=== PATIENT | male | born 1965 | race Caucasian/White ===

== ENCOUNTER 2020-05-24 12:47 | Outpatient (REF) | payer MEDICARE, MEDICAID, SELFPAY | END 2020-05-24 12:48 | disposition home or self-care (01) | LOC: HO.LAB 12:47 | PROVIDERS: Visit Provider Internal Medicine | DX: Z20.828 Contact with and (suspected) exposure to other viral communicable diseases (principal) | CPT/HCPCS: C9803; U0003 ==

== ENCOUNTER 2020-07-17 12:22 | Outpatient (REF) | payer MEDICARE, MEDICAID, SELFPAY ==
[2020-07-17 14:06] LABS: Estimated Average Glucose 134 mg/dL; Hemoglobin A1c % 6.3 %
[2020-07-17 14:37] LABS: Creatinine Urine 146.62 mg/dL; Microalbum/Creatinine Ratio Ur 4.7 ug/mg cr
[2020-07-17 14:37] LABS: Alanine Aminotransferase 10 U/L (0-40); Albumin Level 4.2 g/dL (3.5-5.0); Alkaline Phosphatase 81 U/L (39-117); Anion Gap 15 (12-20); Aspartate Amino Transferase 10 U/L (5-37); Bilirubin Total 0.3 mg/dL (0.0-1.0); Blood Urea Nitrogen 16 mg/dL (9-16); Calcium 9.1 mg/dL (8.4-10.2); Carbon Dioxide 27 mmol/L (22-29); Chloride 101 mmol/L (96-108); Estimated Glomerular Filt Rate > 60; Glucose Random 140 mg/dL (60-115); Potassium 4.3 mmol/l (3.3-5.1); Sodium 139 mmol/L (135-145); Total Protein 6.7 g/dL (6.5-8.0)
== END 2020-07-17 12:23 | disposition home or self-care (01) ==
LOC: HO.LAB 12:22
PROVIDERS: PCP Internal Medicine; Visit Provider Internal Medicine
DX: E11.9 Type 2 diabetes mellitus without complications (principal); E78.00 Pure hypercholesterolemia, unspecified; F70 Mild intellectual disabilities; I10 Essential (primary) hypertension
CPT/HCPCS: 36415; 80053; 82043; 83036

== ENCOUNTER 2020-09-14 12:05 | Outpatient (REF) | payer MEDICARE, MEDICAID, SELFPAY | END 2020-09-14 12:06 | disposition home or self-care (01) | LOC: HO.LAB 12:05 | PROVIDERS: Visit Provider Internal Medicine | DX: Z20.822 Contact with and (suspected) exposure to COVID-19 (principal) | CPT/HCPCS: 36415; C9803; U0003; U0005 ==

== ENCOUNTER 2021-02-12 09:44 | Outpatient (REF) | payer MEDICARE, MEDICAID, SELFPAY ==
[2021-02-12 10:47] LABS: MANUAL DIFF FLAG NO
[2021-02-12 10:54] LABS: Basophils Absolute Auto 0.1 X10*3/uL (0.0-0.2); Basophils Percent Auto 1.1 % (0-2); Eosinophils Absolute Auto 0.2 X10*3/uL (0.0-0.4); Eosinophils Percent Auto 4.1 % (0-4); Hematocrit 42.2 % (42-52); Hemoglobin 13.6 g/dl (14.0-18.0); Imm Gran Abs Auto 0.03 X10*3/uL (0.00-0.03); Imm Gran Pct Auto 0.5 % (0.0-0.4); Lymphocytes Percent Auto 17.1 % (20-40); Mean Corpuscular HGB Conc 32.2 g/dl (31.0-36.0); Mean Corpuscular Hemoglobin 26.8 pg (27.0-33.0); Mean Corpuscular Volume 83.2 fL (80-98); Mean Platelet Volume 9.4 fL (9.4-12.4); Monocytes Absolute Auto 0.5 X10*3/uL (0.1-1.2); Neutrophils Absolute Auto 3.9 X10*3/uL (2.0-8.3); Neutrophils Percent Auto 68.2 % (45-73); Platelet Count 330 X10*3/uL (160-400); Red Blood Count 5.07 X10*6/uL (4.60-5.80); Red Cell Distribution Width 13.7 % (11.0-16.0); White Blood Count 5.7 X10*3/uL (4.8-10.8)
[2021-02-12 10:58] LABS: Estimated Average Glucose 137 mg/dL; Hemoglobin A1c % 6.4 %
[2021-02-12 11:15] LABS: Alanine Aminotransferase 12 U/L (0-40); Albumin Level 4.1 g/dL (3.5-5.0); Alkaline Phosphatase 83 U/L (39-117); Anion Gap 15 (12-20); Aspartate Amino Transferase 10 U/L (5-37); Bilirubin Total 0.6 mg/dL (0.0-1.0); Blood Urea Nitrogen 12 mg/dL (9-16); Calcium 9.1 mg/dL (8.4-10.2); Carbon Dioxide 25 mmol/L (22-29); Chloride 99 mmol/L (96-108); Cholesterol 146 mg/dL; Estimated Glomerular Filt Rate > 60; Glucose Random 131 mg/dL (60-115); HDL Cholesterol 44 mg/dL; LDL Cholesterol Calculated 83 mg/dl; Sodium 134 mmol/L (135-145); Total Protein 6.6 g/dL (6.5-8.0); Triglycerides 96 mg/dL
== END 2021-02-12 09:45 | disposition home or self-care (01) ==
LOC: HO.LAB 09:44
PROVIDERS: PCP Internal Medicine; Visit Provider Internal Medicine
DX: E11.9 Type 2 diabetes mellitus without complications (principal); F70 Mild intellectual disabilities; I10 Essential (primary) hypertension
CPT/HCPCS: 36415; 80053; 80061; 83036; 85025

== ENCOUNTER 2021-07-31 12:38 | Outpatient (REF) | payer MEDICARE, MEDICAID, SELFPAY ==
[2021-07-31 13:51] LABS: Estimated Average Glucose 143 mg/dL; Hemoglobin A1c % 6.6 %
[2021-07-31 14:08] LABS: Alanine Aminotransferase 9 U/L (0-40); Albumin Level 4.1 g/dL (3.5-5.0); Alkaline Phosphatase 87 U/L (39-117); Anion Gap 15 (12-20); Aspartate Amino Transferase 12 U/L (5-37); Bilirubin Total 0.6 mg/dL (0.0-1.0); Blood Urea Nitrogen 20 mg/dL (9-16); Calcium 9.5 mg/dL (8.4-10.2); Carbon Dioxide 25 mmol/L (22-29); Chloride 101 mmol/L (96-108); Estimated Glomerular Filt Rate > 60; Glucose Random 138 mg/dL (60-115); Potassium 4.5 mmol/L (3.3-5.1); Sodium 136 mmol/L (135-145); Total Protein 6.9 g/dL (6.5-8.0)
[2021-07-31 14:48] LABS: Creatinine Urine 128.98 mg/dL; Microalbum/Creatinine Ratio Ur 4.6 ug/mg cr
== END 2021-07-31 12:39 | disposition home or self-care (01) ==
LOC: HO.LAB 12:38
PROVIDERS: PCP Internal Medicine; Visit Provider Internal Medicine
DX: E11.9 Type 2 diabetes mellitus without complications (principal); E78.00 Pure hypercholesterolemia, unspecified; F70 Mild intellectual disabilities; I10 Essential (primary) hypertension
CPT/HCPCS: 36415; 80053; 82043; 83036

== ENCOUNTER 2021-08-29 13:48 | Outpatient (REF) | payer MEDICARE, MEDICAID, SELFPAY ==
--- NOTE | 2021-08-30 14:39 | MHC.AU.ANO ---
Adult Audiological Evaluation Date of Visit: 08/29/21 Reason for Appointment: Patient has been experiencing hearing difficulty at home. People find that they have to repeat themselves frequently and speak loudly to get his attention. His PARKING ENFORCER suspects the patient has had hearing difficulty for a long time, but has noticed it has been getting worse over the last year. 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 Otoscopy: Right Ear: Unremarkable Left Ear: Unremarkable Tympanometry: Tympanometry performed due to: To assess integrity of the middle ear system Right Ear: Normal Middle Ear System (Type A) Left Ear: Negative Middle Ear Pressure (Type C) Hearing Evaluation: Transducer(s) Used: Insert Earphones Method: Conventional Audiometry Stimuli Used: Pure Tones Right Ear: Description of Hearing: Mild to moderate sensorineural hearing loss Left Ear: Description of Hearing: Mild to moderate sensorineural hearing loss Speech Recognition Threshold (SRT): Method Used: Recorded Lists Stimuli Used: Spondee Words Right Ear: 35 dBHL Left Ear: 35 dBHL Word Discrimination: Method: Recorded Lists Word Lists Used: W-22 Right Ear: 76% at 75 dBHL Left Ear: 88% at 75 dBHL Recommendations: Audiological re-evaluation in one year. Trial with amplification is recommended. Medical clearance from a physician is required before fitting. See Hearing Aid Evaluation report for more information. Diagnosis: Primary Diagnosis: H90.3 Bilateral Sensorineural Hearing Loss Signature: Provider: Palmira Smith, [facility]
--- NOTE | 2021-08-30 14:41 | MHC.AU.HAS ---
Hearing Aid Evaluation Date of Visit: 08/29/21 Historical Information: Description of Hearing: Mild to moderate sensorineural hearing loss bilaterally Summary: Patient was seen for audiological evaluation (see separeate report for details). Patient's SENIOR PENSIONS ADMINISTRATOR reports that the patient has likely had difficulty hearing for awhile, but it seems to have gotten worse over the last year. He has not previously worn hearing aids. Hearing aid options were discussed. Patient's SENIOR PENSIONS ADMINISTRATOR was concerned about retention. He feels the KRISTOPHER style may be best tolerated and stay on the best. Patient has an iPad- discussed possibility of using the Dopplr shahida in case the hearing aids are lost. Hearing Aid Prescription: Based on the individual?s shared listening needs, communication environments, dexterity, desire for connectivity, and personal preferences, the following prescription for amplification has been made: Right ear: Information Writer: Blueliv Model: Evolv AI 1600 KRISTOPHER R Battery Size: Rechargeable Color: Black Left ear: Information Writer: Blueliv Model: Evolv AI 1600 KRISTOPHER R Battery Size: Rechargeable Color: Black Action Taken/Action Needed: Medical Clearance to be requested from PCP/ENT Hearing Instrument Fitting to be scheduled when materials arrive Primary Diagnosis: H90.3 Bilateral Sensorineural Hearing Loss Signature: Provider: Palmira Smith, [facility]
--- NOTE | 2021-08-30 14:41 | MHC.AU.MED ---
Medical Clearance for Hearing Instrumentation Date: 08/30/21 Patient Name: Willy Hudson Date of : 1965 Referring Provider: Dolly Pham MD We have seen your patient on 08/29/21 and have determined that they are a candidate for amplification (See accompanying report). Specifically, they would benefit from: Hearing aid use in both ears There is a statute that addresses Medical Evaluation Requirements prior to fitting a patient with a hearing aid. According to [place] statute 265 CMR:6.03(1), (a) General. Except as provided in 265 CMR 6.03(1)(b), a professional employer consultant shall not sell a hearing aid unless the prospective user has presented to the professional employer consultant a written statement signed by a licensed physician that states that the patient's hearing loss has been medically evaluated and the patient may be considered a candidate for a hearing aid. The medical evaluation must have taken place within the preceding six months. Please note: Due to the [place] Statute referenced above, we cannot accept a signature other than that of a licensed physician. PROFESSOR OF LITERATURE and PA signatures cannot be accepted. I am in agreement with the above recommendation. There is no medical contraindication for hearing instrumentation. Physician Signature Date Physician Name (Printed)
== END 2021-08-29 13:49 | disposition home or self-care (01) ==
LOC: HO.SH 13:48
PROVIDERS: Visit Provider Internal Medicine
DX: H90.3 Sensorineural hearing loss, bilateral (principal)
CPT/HCPCS: 92557; 92567; 92591

== ENCOUNTER 2021-09-13 12:59 | Outpatient (REF) | payer MEDICARE, MEDICAID, SELFPAY ==
--- NOTE | 2021-09-13 13:24 | MHC.AU.HFA ---
Hearing Instrument Fitting- Adult- Binaural Date of Visit: 09/13/21 Hearing Instruments Dispensed: Right Ear: Retail Clerk: Carsabi Model: Evolv AI 1600 KRISTOPHER R Serial Number: [id number] Repair Warranty: 12/03/2024 Loss and Damage Warranty: 12/03/2024 Battery Size: Rechargeable Color: Black Optical Instrument Repairer: Size 2- 60 Gain Type of Dome: 7mm Comfort Penn Type of Wax Guard: HearClear Left Ear: Retail Clerk: Carsabi Model: Evolv AI 1600 KRISTOPHER R Serial Number: [id number] Repair Warranty: 12/03/2024 Loss and Damage Warranty: 12/03/2024 Battery Size: Rechargeable Color: Black Optical Instrument Repairer: Size 2-60 Gain Type of Dome: 7mm Comfort Penn Type of Wax Guard: HearClear Summary of Fitting: Feedback modeling manager run. Verifit performed and levels adjusted to better reach targets. Patient was pleased with the instruments. Hearing aid care and maintenance were discussed and practiced. The hearing aids were paired to the patient's iPhone and the [employer] shahida. Discussed to use the Find My Hearing Aids feature. Recommendations: Recommendations: A hearing instrument follow-up was scheduled. Diagnosis Code(s): Primary Diagnosis: H90.3 Bilateral Sensorineural Hearing Loss Signature: Provider: Palmira Smith, [facility]
== END 2021-09-13 13:00 | disposition home or self-care (01) ==
LOC: HO.HAP 12:59
PROVIDERS: Visit Provider Internal Medicine
DX: Z46.1 Encounter for fitting and adjustment of hearing aid (principal); H90.3 Sensorineural hearing loss, bilateral
CPT/HCPCS: V5011; V5020; V5160; V5261

== ENCOUNTER 2021-09-27 11:55 | Outpatient (REF) | payer MEDICARE, MEDICAID, SELFPAY | END 2021-09-27 11:56 | disposition home or self-care (01) | LOC: HO.HAP 11:55 | PROVIDERS: Visit Provider Internal Medicine | DX: Z13.89 Encounter for screening for other disorder (principal) ==

== ENCOUNTER 2022-01-01 14:18 | Outpatient (REF) | payer MEDICARE, MEDICAID, SELFPAY ==
[2022-01-01 14:43] LABS: MANUAL DIFF FLAG NO
[2022-01-01 15:26] LABS: Basophils Absolute Auto 0.1 X10*3/uL (0.0-0.2); Basophils Percent Auto 0.7 % (0-2); Eosinophils Absolute Auto 0.3 X10*3/uL (0.0-0.4); Eosinophils Percent Auto 3.7 % (0-4); Hematocrit 42.6 % (42.0-52.0); Hemoglobin 13.8 g/dl (14.0-18.0); Imm Gran Abs Auto 0.04 X10*3/uL (0.00-0.03); Imm Gran Pct Auto 0.6 % (0.0-0.4); Lymphocytes Absolute Auto 1.2 X10*3/uL (1.2-4.9); Mean Corpuscular HGB Conc 32.4 g/dl (31.0-36.0); Mean Corpuscular Hemoglobin 26.3 pg (27.0-33.0); Mean Corpuscular Volume 81.3 fL (80.0-98.0); Mean Platelet Volume 9.5 fL (9.4-12.4); Monocytes Absolute Auto 0.7 X10*3/uL (0.1-1.2); Monocytes Percent Auto 9.7 % (2-11); Neutrophils Absolute Auto 4.6 x10*3/uL (2.0-8.3); Neutrophils Percent Auto 68.3 % (45-73); Platelet Count 305 X10*3/uL (160-400); Red Blood Count 5.24 X10*6/uL (4.60-5.80); Red Cell Distribution Width 13.5 % (11.0-16.0); White Blood Count 6.8 X10*3/uL (4.8-10.8)
[2022-01-01 15:57] LABS: Alanine Aminotransferase 14 U/L (0-40); Albumin Level 4.2 g/dL (3.5-5.0); Alkaline Phosphatase 100 U/L (39-117); Anion Gap 13 (12-20); Aspartate Amino Transferase 11 U/L (5-37); Bilirubin Total 0.5 mg/dL (0.0-1.0); Blood Urea Nitrogen 18 mg/dL (9-16); Carbon Dioxide 26 mmol/L (22-29); Chloride 99 mmol/L (96-108); Cholesterol 165 mg/dL; Estimated Glomerular Filt Rate > 60; Glucose Random 135 mg/dL (60-115); HDL Cholesterol 47 mg/dL; LDL Cholesterol Calculated 75 mg/dl; Potassium 4.2 mmol/L (3.3-5.1); Sodium 134 mmol/L (135-145); Total Protein 6.9 g/dL (6.5-8.0); Triglycerides 217 mg/dL
[2022-01-01 16:15] LABS: Estimated Average Glucose 154 mg/dL
[2022-01-01 16:19] LABS: Prostate Specific Antigen 1.11 ng/mL (<0.05-4.0)
[2022-01-01 16:29] LABS: Vitamin B12 209 pg/mL (200-900)
[2022-01-01 16:40] LABS: Creatinine Urine 100.26 mg/dL; Microalbum/Creatinine Ratio Ur 4.9 ug/mg cr
== END 2022-01-01 14:19 | disposition home or self-care (01) ==
LOC: HO.LAB 14:18
PROVIDERS: PCP Internal Medicine; Visit Provider Internal Medicine
DX: E11.9 Type 2 diabetes mellitus without complications (principal); E78.00 Pure hypercholesterolemia, unspecified; F70 Mild intellectual disabilities; I10 Essential (primary) hypertension; Z12.5 Encounter for screening for malignant neoplasm of prostate
CPT/HCPCS: 36415; 80053; 80061; 82043; 82607; 83036; 84153; 85025

== ENCOUNTER 2022-01-16 11:04 | Outpatient (REF) | payer MEDICARE, MEDICAID, SELFPAY | END 2022-01-16 11:05 | disposition home or self-care (01) | LOC: HO.HAP 11:04 | PROVIDERS: Visit Provider Internal Medicine | DX: Z13.89 Encounter for screening for other disorder (principal) ==

== ENCOUNTER 2022-04-02 12:13 | Outpatient (REF) | payer MEDICARE, MEDICAID, SELFPAY ==
--- NOTE | 2022-04-02 15:20 | MHC.AU.HFU ---
Hearing Instrument Follow-Up- Binaural Date of Visit: 04/02/22 Right Ear: Edging Machine Catcher: Terence Model: Evolv AI 1600 KRISTOPHER R Serial Number: [id number] Repair Warranty: 12/03/2024 Loss and Damage Warranty: 12/03/2024 Battery Size: Rechargeable Color: Black Gate Cutter: Size 2- 60 Gain Type of Dome: 7mm Comfort Levelock Type of Wax Guard: HearClear Dispensed By: [facility] Date of Fittin09/13/2021 Left Ear: Edging Machine Catcher: Terence Model: Evolv AI 1600 KRISTOPHER R Serial Number: [id number] Repair Warranty: 12/03/2024 Loss and Damage Warranty: 12/03/2024 Battery Size: Rechargeable Color: Black Gate Cutter: Size 2-60 Gain Type of Dome: 7mm Comfort Levelock Type of Wax Guard: HearClear Dispensed By: [facility] Date of Fittin09/13/2021 Follow-Up Summary: Both aids and the monorail charger operator (without the cord) was dropped off and reportedly not working. Initial check of the aids showed the right aid working and charging properly, but wax guard blocked and microphone cover off of aid. Cleaned aid, changed wax guard and dome. DID NOT HAVE REPLACEMENT BLACK BUCK COVERS, WILL ORDER. The left aid is not charging in patient's monorail charger operator. Tried stock monorail charger operator and the aid still did not charge. Recommendations (Other): Sending the left aid out for repair under warranty. Patient daughter called and says she will picker tender the right and monorail charger operator later today. Requested additional replacement microphone covers on the repair form. WHEN REPAIR RECEIVED, SCHEDULE APPOINTMENT TO HAVE AIDS PROGRAMMED TOGETHER AND REPLACE THE RIGHT AID MICROPHONE COVER. Diagnosis Code(s):Primary Diagnosis: H90.3 Bilateral Sensorineural Hearing Loss Signature:Provider: Olu Patrick, [facility]
== END 2022-04-02 12:14 | disposition home or self-care (01) ==
LOC: HO.HAP 12:13
PROVIDERS: Visit Provider Internal Medicine
DX: Z13.89 Encounter for screening for other disorder (principal)

== ENCOUNTER 2022-04-23 11:13 | Outpatient (REF) | payer MEDICARE, MEDICAID, SELFPAY | END 2022-04-23 11:14 | disposition home or self-care (01) | LOC: HO.HAP 11:13 | PROVIDERS: Visit Provider Internal Medicine | DX: Z13.89 Encounter for screening for other disorder (principal) ==

== ENCOUNTER 2022-05-14 11:00 | Outpatient (REF) | payer MEDICARE, MEDICAID, SELFPAY ==
[2022-05-14 12:29] LABS: Estimated Average Glucose 154 mg/dL
[2022-05-14 13:12] LABS: Alanine Aminotransferase 10 U/L (0-40); Albumin Level 4.1 g/dL (3.5-5.0); Alkaline Phosphatase 80 U/L (39-117); Anion Gap 14 (12-20); Aspartate Amino Transferase 10 U/L (5-37); Bilirubin Total 0.6 mg/dL (0.0-1.0); Blood Urea Nitrogen 17 mg/dL (9-16); Calcium 9.4 mg/dL (8.4-10.2); Carbon Dioxide 27 mmol/L (22-29); Chloride 100 mmol/L (96-108); Estimated Glomerular Filt Rate > 60; Glucose Random 132 mg/dL (60-115); Potassium 4.9 mmol/L (3.3-5.1); Sodium 136 mmol/L (135-145); Total Protein 6.7 g/dL (6.5-8.0)
== END 2022-05-14 11:01 | disposition home or self-care (01) ==
LOC: HO.LAB 11:00
PROVIDERS: PCP Internal Medicine; Visit Provider Internal Medicine
DX: D51.9 Vitamin B12 deficiency anemia, unspecified (principal); E11.9 Type 2 diabetes mellitus without complications; E78.2 Mixed hyperlipidemia; M54.50 Low back pain, unspecified
CPT/HCPCS: 36415; 80053; 83036

== ENCOUNTER 2022-07-17 14:09 | Outpatient (REF) | payer MEDICARE, MEDICAID, SELFPAY ==
--- NOTE | 2022-07-17 15:22 | MHC.AU.HA3 ---
Hearing Instrument Follow-Up- Binaural Date of Visit: 07/17/22 Right Ear: Nikolay, , Color, Serial Number: Terence PENA 1600 KRISTOPHER-Rk Page Serial #[id number] Content Development Specialist Repair Warranty: 12/03/2024 Content Development Specialist Loss and Damage Warranty: 12/03/2024 Battery Size: Rechargeable Waterworks Operator/Slim Tube: Size 2- 60 Gain Earmold/Dome/CShell/SlimTip:7mm comfort bud Type of Wax Guard: HearClear Dispensed By: [facility] Date of Fittin09/13/2021 Left Ear: Nikolay, , Color, Serial Number: Terence PENA 1600 LALITO Page Serial #[id number] Content Development Specialist Repair Warranty: 12/03/2024 Content Development Specialist Loss and Damage Warranty: 12/03/2024 Battery Size: Rechargeable Waterworks Operator/Slim Tube: Size 2-60 Gain Earmold/Dome/CShell/SlimTip: 7mm comfort bud Type of Wax Guard: HearClear Dispensed By: [facility] Date of Fittin09/13/2021 Follow-Up Summary: Patient's hearing aids and rim fire charger operator were dropped off. The left side was reported as not working. There was also a note saying wire gets hot. The wire for the rim fire charger operator was wrapped in electrical tape. Out of safety, the rim fire charger operator was not plugged in to test. Both hearing aids were missing the microphone covers. Both hearing aids and the rim fire charger operator were sent to [facility] for repair. Recommendations: Patient will be contacted when materials have arrived. Diagnosis Code(s): Primary Diagnosis: H90.3 Bilateral Sensorineural Hearing Loss Signature: Provider: Olu Smith, [facility]
== END 2022-07-17 14:10 | disposition home or self-care (01) ==
LOC: HO.HAP 14:09
PROVIDERS: Visit Provider Internal Medicine
DX: Z13.89 Encounter for screening for other disorder (principal)

== ENCOUNTER 2022-08-02 15:05 | Outpatient (REF) | payer MEDICARE, MEDICAID, SELFPAY | END 2022-08-02 15:06 | disposition home or self-care (01) | LOC: HO.HAP 15:05 | PROVIDERS: Visit Provider Internal Medicine | DX: Z13.89 Encounter for screening for other disorder (principal) ==

== ENCOUNTER 2022-08-14 12:32 | Outpatient (REF) | payer MEDICARE, MEDICAID, SELFPAY ==
[2022-08-14 15:33] LABS: Alanine Aminotransferase 14 U/L (0-40); Albumin Level 4.1 g/dL (3.5-5.0); Alkaline Phosphatase 85 U/L (39-117); Anion Gap 13 (12-20); Aspartate Amino Transferase 11 U/L (5-37); Bilirubin Total 0.5 mg/dL (0.0-1.0); Blood Urea Nitrogen 17 mg/dL (9-16); Calcium 8.9 mg/dL (8.4-10.2); Carbon Dioxide 29 mmol/L (22-29); Chloride 96 mmol/L (96-108); Estimated Glomerular Filt Rate > 60; Glucose Random 184 mg/dL (60-115); Sodium 134 mmol/L (135-145); Total Protein 6.6 g/dL (6.5-8.0)
[2022-08-14 15:38] LABS: Estimated Average Glucose 154 mg/dL
[2022-08-14 17:34] LABS: Appearance Urine Clear; Color Urine Yellow; Glucose Urine UA 250 mg/dL (Negative); Leukocyte Esterase Urine Negative (Negative); Nitrite Urine Negative (Negative); Specific Gravity - Urine 1.025 (1.005-1.025); Urine Blood Negative (Negative); Urine Ketones Negative (Negative); Urine Protein Negative (Neg-Trace)
[2022-08-14 17:53] LABS: Bacteria Urine None Seen (None Seen); Hyaline Casts Urine 0-2 /LPF (0-2); RBC Urine 0-2 /HPF (0-2); Squamous Epithelial Cell Urine 0-2 /HPF (0-2); WBC Urine 0-5 /HPF (0-5)
== END 2022-08-14 12:33 | disposition home or self-care (01) ==
LOC: HO.LAB 12:32
PROVIDERS: PCP Internal Medicine; Visit Provider Internal Medicine
DX: E11.9 Type 2 diabetes mellitus without complications (principal); F33.41 Major depressive disorder, recurrent, in partial remission; G47.00 Insomnia, unspecified; N39.0 Urinary tract infection, site not specified; M25.551 Pain in right hip
CPT/HCPCS: 36415; 80053; 81001; 83036; 87086

== ENCOUNTER 2023-02-12 13:44 | Outpatient (REF) | payer MEDICARE, MEDICAID, SELFPAY | END 2023-02-12 13:45 | disposition home or self-care (01) | LOC: HO.HAP 13:44 | PROVIDERS: Visit Provider Internal Medicine | DX: Z46.1 Encounter for fitting and adjustment of hearing aid (principal); H90.3 Sensorineural hearing loss, bilateral | CPT/HCPCS: 92593 ==

== ENCOUNTER 2023-02-19 14:14 | Outpatient (REF) | payer MEDICARE, MEDICAID, SELFPAY | END 2023-02-19 14:15 | disposition home or self-care (01) | LOC: HO.HAP 14:14 | PROVIDERS: Visit Provider Internal Medicine | DX: Z13.89 Encounter for screening for other disorder (principal) ==

== ENCOUNTER 2023-03-12 13:39 | Outpatient (REF) | payer MEDICARE, MEDICAID, SELFPAY ==
[2023-03-12 14:46] LABS: Estimated Average Glucose 157 mg/dL; Hemoglobin A1c % 7.1 % (<6.0)
[2023-03-12 15:04] LABS: Alanine Aminotransferase 11 U/L (0-40); Alkaline Phosphatase 94 U/L (39-117); Anion Gap 12 (12-20); Aspartate Amino Transferase 10 U/L (5-37); Bilirubin Total 0.3 mg/dL (0.0-1.0); Blood Urea Nitrogen 16 mg/dL (9-16); Calcium 9.4 mg/dL (8.4-10.2); Carbon Dioxide 28 mmol/L (22-29); Chloride 99 mmol/L (96-108); Estimated Glomerular Filt Rate > 60; Glucose Random 140 mg/dL (60-115); Potassium 4.2 mmol/L (3.3-5.1); Sodium 135 mmol/L (135-145); Total Protein 6.8 g/dL (6.5-8.0)
== END 2023-03-12 13:40 | disposition home or self-care (01) ==
LOC: HO.LAB 13:39
PROVIDERS: PCP Internal Medicine; Visit Provider Internal Medicine
DX: E11.9 Type 2 diabetes mellitus without complications (principal); K21.9 Gastro-esophageal reflux disease without esophagitis; M22.2X1 Patellofemoral disorders, right knee; R13.10 Dysphagia, unspecified
CPT/HCPCS: 36415; 80053; 83036

== ENCOUNTER 2023-05-12 09:25 | Outpatient (REF) | payer MEDICARE, MEDICAID, SELFPAY ==
[2023-05-12 09:59] LABS: MANUAL DIFF FLAG NO
[2023-05-12 10:51] LABS: Basophils Absolute Auto 0.1 X10*3/uL (0.0-0.2); Basophils Percent Auto 0.8 % (0-2); Eosinophils Absolute Auto 0.2 X10*3/uL (0.0-0.4); Eosinophils Percent Auto 3.4 % (0-4); Hematocrit 41.1 % (42.0-52.0); Hemoglobin 13.5 g/dl (14.0-18.0); Imm Gran Abs Auto 0.02 X10*3/uL (0.00-0.03); Imm Gran Pct Auto 0.3 % (0.0-0.4); Lymphocytes Percent Auto 15.9 % (20-40); Mean Corpuscular HGB Conc 32.8 g/dl (31.0-36.0); Mean Corpuscular Hemoglobin 26.3 pg (27.0-33.0); Mean Platelet Volume 9.7 fL (9.4-12.4); Monocytes Absolute Auto 0.5 X10*3/uL (0.1-1.2); Monocytes Percent Auto 7.9 % (2-11); Neutrophils Absolute Auto 4.4 x10*3/uL (2.0-8.3); Neutrophils Percent Auto 71.7 % (45-73); Platelet Count 318 X10*3/uL (160-400); Red Blood Count 5.14 X10*6/uL (4.60-5.80); Red Cell Distribution Width 13.8 % (11.0-16.0); White Blood Count 6.1 X10*3/uL (4.8-10.8)
[2023-05-12 11:07] LABS: Estimated Average Glucose 154 mg/dL
[2023-05-12 11:22] LABS: Alanine Aminotransferase 9 U/L (0-40); Alkaline Phosphatase 91 U/L (39-117); Anion Gap 12 (12-20); Aspartate Amino Transferase 11 U/L (5-37); Bilirubin Total 0.4 mg/dL (0.0-1.0); Blood Urea Nitrogen 15 mg/dL (9-16); Carbon Dioxide 28 mmol/L (22-29); Chloride 98 mmol/L (96-108); Cholesterol 156 mg/dL (<200); Estimated Glomerular Filt Rate > 60; Glucose Random 147 mg/dL (60-115); HDL Cholesterol 45 mg/dL (>40); LDL Cholesterol Calculated 97 mg/dL (<100); Potassium 4.2 mmol/L (3.3-5.1); Sodium 134 mmol/L (135-145); Total Protein 6.9 g/dL (6.5-8.0); Triglycerides 72 mg/dL (<150)
[2023-05-12 11:30] LABS: Prostate Specific Antigen Scr 1.03 ng/mL (<0.05-4.0)
[2023-05-12 11:43] LABS: Creatinine Urine 72.45 mg/dL; Microalbumin Urine < 5.0 mg/L
== END 2023-05-12 09:26 | disposition home or self-care (01) ==
LOC: HO.LAB 09:25
PROVIDERS: PCP Internal Medicine; Visit Provider Internal Medicine
DX: Z12.5 Encounter for screening for malignant neoplasm of prostate (principal); E11.9 Type 2 diabetes mellitus without complications; K21.9 Gastro-esophageal reflux disease without esophagitis; M22.2X1 Patellofemoral disorders, right knee; R13.10 Dysphagia, unspecified
CPT/HCPCS: 36415; 80053; 80061; 82043; 82570; 83036; 84153; 85025

== ENCOUNTER 2023-10-06 10:00 | Outpatient (REF) | payer MEDICARE, MEDICAID, SELFPAY ==
[2023-10-06 11:01] LABS: Estimated Average Glucose 183 mg/dL
[2023-10-06 12:00] LABS: Alanine Aminotransferase 17 U/L (0-40); Alkaline Phosphatase 99 U/L (39-117); Anion Gap 15 (12-20); Aspartate Amino Transferase 13 U/L (5-37); Bilirubin Total 0.5 mg/dL (0.0-1.0); Blood Urea Nitrogen 15 mg/dL (9-16); Calcium 9.4 mg/dL (8.4-10.2); Carbon Dioxide 27 mmol/L (22-29); Chloride 97 mmol/L (96-108); Cholesterol 131 mg/dL (<200); Estimated Glomerular Filt Rate > 60; Glucose Random 179 mg/dL (60-115); HDL Cholesterol 43 mg/dL (>40); LDL Cholesterol Calculated 74 mg/dL (<100); Potassium 4.7 mmol/L (3.3-5.1); Sodium 134 mmol/L (135-145); Total Protein 6.9 g/dL (6.5-8.0); Triglycerides 72 mg/dL (<150)
== END 2023-10-06 10:01 | disposition home or self-care (01) ==
LOC: HO.LAB 10:00
PROVIDERS: PCP Internal Medicine; Visit Provider Internal Medicine
DX: E11.9 Type 2 diabetes mellitus without complications (principal); E78.00 Pure hypercholesterolemia, unspecified; I10 Essential (primary) hypertension; M22.2X1 Patellofemoral disorders, right knee
CPT/HCPCS: 36415; 80053; 80061; 83036

== ENCOUNTER 2023-10-16 07:52 | Outpatient (AMB) | payer MEDICARE, MEDICAID, SELFPAY ==
--- NOTE | 2023-10-16 08:09 | MHC.OFFVIS ---
Vital Signs 10/16/23 08:12 Height 5 ft 6 in Weight 171 lb 15.369 oz BMI 27.8 BP 117/77 Blood Pressure Location Lt brachial Position Sitting Pulse 79 Intake Visit Reasons: choking on food Intake Note: Willy presents in the office as a new patient for dysphagia. CC: He states that he is having issues with swallowing food - he does not have issues with water. HE feels like the food sits in his esophagus. He has issues with lots of coughing Allergies No Known Allergies Allergy (Verified 11/08/20 12:34) Medication List - Last Reconciled 10/16/23 by Leticia Rivera PA-C doxepin 10 mg PO BEDTIME fluoxetine 20 mg PO DAILY lisinopril 5 mg PO DAILY metformin 1,000 mg PO BID simvastatin 10 mg PO BEDTIME HPI Comments Details: 57 y/o male with dysphagia-rice especially- for the past several months- he does not know if he has acid reflux-further disc- describes waterbrash Appetite is good-he describes difficulty swallowing Bowels normal-no issues colonoscopy after review of chart shows 2018 Dr. Gonzales repeat 10 years He has no nausea, vomiting, hematemesis, hematochezia fever or chills PFSH Medical History (Updated 10/16/23 @ 10:31 by Leticia Rivera PA-C) Developmental delay, moderate DM II (diabetes mellitus, type II), controlled Depression Anxiety Umbilical hernia Colon cancer screening Surgical History (Updated 10/16/23 @ 08:30 by Leticia Rivera PA-C) Hx of colonoscopy History of surgery Social History (Updated 10/16/23 @ 08:33 by Leticia Rivera PA-C) Household Members Other:: single- lives with a friend Alcohol intake: former Patient Tobacco Use Status: Former Tobacco user Current occupational status: disabled Review of Systems Const All systems reviewed & are unremarkable except as noted in HPI and below ENT Reports dysphagia Card Denies chest pain and Denies dyspnea Resp Denies dyspnea GI Denies abdominal pain, Denies change in bowel habits and Reports dysphagia Physical Exam Vital Signs: Last Vital Signs Pulse 79 10/16/23 08:12 BP 117/77 10/16/23 08:12 BMI result Body Mass Index 27.8 Const General: cooperative, healthy appearing, comfortable and no acute distress Orientation/consciousness: patient oriented x3 Limitations: other limitations (delay- mild) Eyes Sclerae: sclerae normal Resp Effort & Inspection: normal respiratory effort and able to speak in complete sentences Auscultation: no rales, rhonchi and no wheezes Cardio Rate: regular rate Rhythm: regular rhythm Heart sounds: S1 normal heart sound present and S2 normal heart sound present GI Palpation (GI): Soft to palpation and nontender Skin General skin exam: no rashes or lesions noted Neuro General: patient oriented x3 Extrem General: Yes full ROM Psych Appearance: well kempt Mental Status: mental status grossly normal Speech and movement: Clear speech present and Slowed speech present (Psych) Affect: Labile affect present Attitude: cooperative Thought process: Normal thought process present Thought content: Normal thought content present Insight: Good insight present (Psych) Assessment & Plan Assessment & Plan (1) Dysphagia: Comment: Discussion-detailed opportunity for questions answered to his satisfaction Code(s): R13.10 - Dysphagia, unspecified Category: Medical Plan: EGD possible dil Eat slowly, chew well avoid chokes Will get barium swallow in the interim (2) Acid reflux: Code(s): K21.9 - Gastro-esophageal reflux disease without esophagitis Category: Medical Plan: Omeprazole 20 mg Reflux precautions Plan EGD poss dil BS- Orders: Orders FL upper GI series Today K21.9 - Gastro-esophageal reflux disease without esophagitis, R13.10 - Dysphagia, unspecified EDG - GI Use Only Today K21.9 - Gastro-esophageal reflux disease without esophagitis, R13.10 - Dysphagia, unspecified Medications: New omeprazole 20 mg PO DAILY 30 caps 5RF Patient Instructions: EGD possible daily Discussed procedure, rare risks need for escort He will omit metformin evening before procedure as well as no diabetes medication morning of procedure Will get barium swallow in the interim Eat slowly, chew well See back 4-6 weeks for progress Encouraged to call with any questions or concerns Coding Level of Care Code New Pt Level 3 (16707) Diagnoses Dysphagia R13.10 Acid reflux K21.9 Time Spent (min) 30
[2023-10-16 08:12] VITALS: BP 117/77; PULSE 79; BMI 27.8
== END 2023-10-16 09:43 | disposition home or self-care (01) ==
PROVIDERS: PCP Internal Medicine; Visit Provider Physician Assistant
DX: R13.10 Dysphagia, unspecified (principal); K21.9 Gastro-esophageal reflux disease without esophagitis
CPT/HCPCS: 99203

== ENCOUNTER → 2023-10-16 07:52 | Outpatient (BNVA) | payer MEDICARE, MEDICAID, SELFPAY | PROVIDERS: PCP Internal Medicine; Visit Provider Physician Assistant | DX: R13.10 Dysphagia, unspecified (principal); K21.9 Gastro-esophageal reflux disease without esophagitis; Z79.899 Other long term (current) drug therapy | CPT/HCPCS: 99202 ==

== ENCOUNTER 2023-10-31 15:48 | Outpatient (REF) | payer MEDICARE, MEDICAID, SELFPAY ==
--- NOTE | 2023-11-03 16:13 | MHC.AU.HA3 ---
Hearing Instrument Follow-Up- Binaural Date of Visit: 10/31/23 Right Ear: Nikolay, Model, Color, Serial Number: Terence Soto AI 1600 KRISTOPHER-Rk Page Serial #[id number] School Health Assistant Repair Warranty: 12/03/2024 School Health Assistant Loss and Damage Warranty: 12/03/2024 [facility] Service Plan: Battery Size: Rechargeable Pressure Tester Operator/Slim Tube: Size 2- 60 Gain Earmold/Dome/CShell/SlimTip:7mm comfort bud Type of Wax Guard: HearClear Dispensed By: [facility] Date of Fittin09/13/2021 Left Ear: Nikolay, Model, Color, Serial Number: Terence Soto AI 1600 KRISTOPHER-Rk Page Serial #[id number] School Health Assistant Repair Warranty: 12/03/2024 School Health Assistant Loss and Damage Warranty: 12/03/2024 [facility] Service Plan: Battery Size: Rechargeable Pressure Tester Operator/Slim Tube: Size 2-60 Gain Earmold/Dome/CShell/SlimTip: 7mm comfort bud Type of Wax Guard: HearClear Dispensed By: [facility] Date of Fittin09/13/2021 Follow-Up Summary: Both aids with shackler and cord, no charging block, dropped off. Report of ongoing charging issues. Found both wax guards clogged. Listening check positive after cleaning. Aids appear to be charging normally. Sending to Terence to be sure there isn't also a charging issue going on. Pt may need retraining on maintenance. Recommendations: Recommendations: Patient will be contacted when materials have arrived. Diagnosis Code(s): Primary Diagnosis: H90.3 Bilateral Sensorineural Hearing Loss Signature: Provider: Olu Collazo, [facility]
== END 2023-10-31 15:49 | disposition home or self-care (01) ==
LOC: HO.HAP 15:48
PROVIDERS: Visit Provider Internal Medicine
DX: Z13.89 Encounter for screening for other disorder (principal)

== ENCOUNTER 2023-11-20 14:21 | Outpatient (REF) | payer MEDICARE, MEDICAID, SELFPAY | END 2023-11-20 14:22 | disposition home or self-care (01) | LOC: HO.HAP 14:21 | PROVIDERS: Visit Provider Internal Medicine | DX: Z46.1 Encounter for fitting and adjustment of hearing aid (principal); H90.3 Sensorineural hearing loss, bilateral | CPT/HCPCS: 92593 ==

== ENCOUNTER 2023-12-10 08:09 | Outpatient (REF) | payer MEDICARE, MEDICAID, SELFPAY ==
--- NOTE | ~2023-12-10 | FL_ITS ---
EXAMINATION: XR FLUOROSCOPY UPPER GI WITH AIR CLINICAL INFORMATION: Reflux. Dysphagia. COMPARISON: None TECHNIQUE: Fluoroscopic air contrast upper GI examination was performed utilizing standard techniques with thin and thick barium and effervescent granules. Numerous spot images were obtained. FINDINGS: Lateral cine images of the oropharynx and hypopharynx demonstrate normal swallow mechanism with normal epiglottic inversion and soft palate elevation. Laryngeal penetration is seen with thick barium. No tracheal penetration, glottic or subglottic aspiration identified. No nasopharyngeal reflux present. A small pharyngeal pouch is present. There is ballooning of the hypopharynx as a result of mild to moderate cricopharyngeal achalasia Dual and single contrast images of the esophagus demonstrate normal caliber, contour, and mucosal pattern. No evidence of stricture, mass, or ulcerations identified. Esophageal peristalsis is mildly disorganized. A small type hiatal hernia is present. Gastroesophageal reflux is seen up to the midesophagus. Dual contrast and single contrast images of the stomach demonstrated normal contour and mucosal pattern without evidence of mass, ulceration, or other abnormality. Contrast freely passed into the gastric antrum and duodenal bulb without delay. Single and air-contrast images of the duodenal bulb demonstrate no abnormality. The duodenal sweep has a normal appearance, course, and mucosal fold appearance. No malrotation. The imaged proximal jejunum has a normal fold pattern and caliber. FLUOROSCOPY TIME: 4 minutes 49 seconds Number of Spot Images: 11 Number of Cine: 17 DOSE AREA PRODUCT: 3410 uGy-m2 (microgray-meter squared) FL/FL upper GI w air IMPRESSION: 1. Laryngeal penetration is seen with thick barium. No subglottic aspiration. 2. Small pharyngeal pouch. 3. Ballooning of the hypopharynx with associated mild to moderate cricopharyngeal achalasia. 4. Mildly disorganized esophageal peristalsis. 5. Small type I hiatal hernia. 6. Moderate gastroesophageal reflux. This procedure was performed by William Olson PA-C, and supervised by Dr. Gamez
== END 2023-12-10 08:10 | disposition home or self-care (01) ==
LOC: HO.XRAY 08:09
PROVIDERS: PCP Internal Medicine; Visit Provider Physician Assistant
DX: R13.10 Dysphagia, unspecified (principal); K21.9 Gastro-esophageal reflux disease without esophagitis
CPT/HCPCS: 74246

== ENCOUNTER → 2023-12-10 08:11 | Outpatient (BNV) | payer MEDICARE, MEDICAID, SELFPAY | PROVIDERS: PCP Internal Medicine; Visit Provider Physician Assistant Surgical | DX: R13.10 Dysphagia, unspecified (principal) | CPT/HCPCS: 74246 ==

== ENCOUNTER 2024-01-15 08:50 | Outpatient (REF) | payer MEDICARE, MEDICAID, SELFPAY ==
[2024-01-15 09:34] LABS: Estimated Average Glucose 154 mg/dL
[2024-01-15 09:41] LABS: Alanine Aminotransferase 12 U/L (0-40); Alkaline Phosphatase 100 U/L (39-117); Anion Gap 14 (12-20); Aspartate Amino Transferase 11 U/L (5-37); Bilirubin Total 0.4 mg/dL (0.0-1.0); Blood Urea Nitrogen 16 mg/dL (9-16); Calcium 8.8 mg/dL (8.4-10.2); Carbon Dioxide 26 mmol/L (22-29); Chloride 100 mmol/L (96-108); Estimated Glomerular Filt Rate > 60; Glucose Random 142 mg/dL (60-115); Sodium 136 mmol/L (135-145); Total Protein 6.8 g/dL (6.5-8.0)
== END 2024-01-15 08:51 | disposition home or self-care (01) ==
LOC: HO.LAB 08:50
PROVIDERS: PCP Internal Medicine; Visit Provider Internal Medicine
DX: E11.65 Type 2 diabetes mellitus with hyperglycemia (principal); E78.2 Mixed hyperlipidemia; I10 Essential (primary) hypertension; Z68.28 Body mass index [BMI] 28.0-28.9, adult
CPT/HCPCS: 36415; 80053; 83036

== ENCOUNTER → 2024-03-02 07:05 | Day surgery (SDC) | payer MEDICARE, MEDICAID, SELFPAY ==
--- NOTE | 2024-02-27 14:31 | P.CONAN_ITS ---
HPI - Anesthesia Eval Consult details Narrative: 58yo M for Upper Endoscopy with possible Dilitation PMFSH Active Problems Active Problems: All Active Problems Acid reflux (Acute) Dysphagia (Acute) Past Medical History Medical History (Updated 10/16/23 @ 10:31 by Leticia Rivera PA-C) Developmental delay, moderate DM II (diabetes mellitus, type II), controlled Depression Anxiety Umbilical hernia Colon cancer screening Surgical History Surgical History (Updated 10/16/23 @ 08:30 by Leticia Rivera PA-C) Hx of colonoscopy History of surgery Social History Social History (Updated 10/16/23 @ 08:33 by Leticia Rivera PA-C) Household Members Other:: single- lives with a friend Alcohol intake: former Patient Tobacco Use Status: Former Tobacco user Current occupational status: [employer] Allergies Allergy/AdvReac Type Severity Reaction Status Date / Time No Known Allergies Allergy Verified 11/08/20 12:34 Home Medications ?Medication ?Instructions ?Recorded ?Confirmed ?Last Taken ?Type doxepin 10 mg capsule 10 mg PO BEDTIME 10/16/23 Unknown History fluoxetine 20 mg capsule 20 mg PO DAILY 10/16/23 Unknown History lisinopril 5 mg tablet 5 mg PO DAILY 10/16/23 Unknown History metformin 1,000 mg tablet 1,000 mg PO BID 10/16/23 Unknown History simvastatin 10 mg tablet 10 mg PO BEDTIME 10/16/23 Unknown History Exam Pertinent Lab Results Pertinent Lab Results: Laboratory Tests 05/12/23 01/15/24 09:58 08:58 WBC 6.1 Hgb 13.5 L Hct 41.1 L Plt Count 318 Sodium 136 Potassium 4.0 Chloride 100 Carbon Dioxide 26 BUN 16 Creatinine 0.85 Assessment and Plan Assessment Anesthesia Assessment: Chart Reviewed
[2024-03-01 07:23] VITALS: BMI 27.6
--- NOTE | 2024-03-02 08:39 | PC.NURSE ---
pt cancelled took his trajdenta yesterday
== END ==
LOC: HO.SSS 07:06
PROVIDERS: PCP Internal Medicine; Visit Provider Internal Medicine Gastroenterology
DX: K21.9 Gastro-esophageal reflux disease without esophagitis (principal); Z53.8 Procedure and treatment not carried out for other reasons

== ENCOUNTER 2024-04-15 09:16 | Outpatient (REF) | payer MEDICARE, MEDICAID, SELFPAY ==
[2024-04-15 09:45] LABS: MANUAL DIFF FLAG NO
[2024-04-15 10:30] LABS: Basophils Absolute Auto 0.1 X10*3/uL (0.0-0.2); Basophils Percent Auto 0.9 % (0-2); Eosinophils Absolute Auto 0.2 X10*3/uL (0.0-0.4); Eosinophils Percent Auto 3.4 % (0-4); Hematocrit 40.8 % (42.0-52.0); Hemoglobin 13.6 g/dl (14.0-18.0); Imm Gran Abs Auto 0.03 X10*3/uL (0.00-0.03); Imm Gran Pct Auto 0.6 % (0.0-0.4); Lymphocytes Absolute Auto 0.8 X10*3/uL (1.2-4.9); Lymphocytes Percent Auto 15.4 % (20-40); Mean Corpuscular HGB Conc 33.3 g/dl (31.0-36.0); Mean Corpuscular Hemoglobin 26.4 pg (27.0-33.0); Mean Corpuscular Volume 79.2 fL (80.0-98.0); Mean Platelet Volume 9.4 fL (9.4-12.4); Monocytes Absolute Auto 0.5 X10*3/uL (0.1-1.2); Monocytes Percent Auto 8.8 % (2-11); Neutrophils Absolute Auto 3.8 x10*3/uL (2.0-8.3); Neutrophils Percent Auto 70.9 % (45-73); Platelet Count 336 X10*3/uL (160-400); Red Blood Count 5.15 X10*6/uL (4.60-5.80); Red Cell Distribution Width 15.2 % (11.0-16.0); White Blood Count 5.3 X10*3/uL (4.8-10.8)
[2024-04-15 10:34] LABS: Estimated Average Glucose 140 mg/dL; Hemoglobin A1C 163.4478 umol/L; Hemoglobin A1c % 6.5 % (<6.0); Total Hemoglobin (HGBA1C) 3431.4123 umol/L
[2024-04-15 11:12] LABS: Alanine Aminotransferase 14 U/L (0-40); Albumin Level 4.1 g/dL (3.5-5.0); Alkaline Phosphatase 90 U/L (39-117); Anion Gap 10 (12-20); Aspartate Amino Transferase 21 U/L (5-37); Bilirubin Total 0.6 mg/dL (0.0-1.0); Blood Urea Nitrogen 14 mg/dL (9-16); Calcium 9.3 mg/dL (8.4-10.2); Carbon Dioxide 28 mmol/L (22-29); Chloride 101 mmol/L (96-108); Cholesterol 131 mg/dL (<200); Estimated Glomerular Filt Rate > 60; Glucose Random 138 mg/dL (60-115); HDL Cholesterol 43 mg/dL (>40); LDL Cholesterol Calculated 74 mg/dL (<100); Potassium 4.2 mmol/L (3.3-5.1); Sodium 135 mmol/L (135-145); Total Protein 6.9 g/dL (6.5-8.0); Triglycerides 73 mg/dL (<150)
[2024-04-15 11:45] LABS: Creatinine Urine 92.64 mg/dL; Microalbum/Creatinine Ratio Ur 6.4 ug/mg cr (<30)
== END 2024-04-15 09:17 | disposition home or self-care (01) ==
LOC: HO.LAB 09:16
PROVIDERS: PCP Internal Medicine; Visit Provider Internal Medicine
DX: E11.9 Type 2 diabetes mellitus without complications (principal); E78.00 Pure hypercholesterolemia, unspecified; I10 Essential (primary) hypertension; R13.14 Dysphagia, pharyngoesophageal phase
CPT/HCPCS: 36415; 80053; 80061; 82043; 82570; 83036; 85025

== ENCOUNTER 2024-06-15 06:11 | Day surgery (SDC) | payer MEDICARE, MEDICAID, SELFPAY ==
[2024-06-11 13:38] VITALS: BMI 27.6
--- NOTE | 2024-06-14 12:27 | HO.ANESPROP2 ---
Documented by User: Karen Tello NP 06/14/24 12:27 HPI - Anesthesia Eval Consult details Narrative: 58yo M for Upper Endoscopy with Dilitation Anesthesia Pre-Procedure Meds Is the patient on any of the following meds?: GLP1/DPP4 PMFSH Active Problems Active Problems: All Active Problems Acid reflux (Acute) Dysphagia (Acute) Past Medical History Medical History Developmental delay, moderate DM II (diabetes mellitus, type II), controlled Depression Anxiety Umbilical hernia Colon cancer screening Surgical History Surgical History Hx of colonoscopy History of surgery Social History Social History Household Members Other:: single- lives with a friend Alcohol intake: former Patient Tobacco Use Status: Former Tobacco user Current occupational status: disabled Meds Allergies Allergy/AdvReac Type Severity Reaction Status Date / Time No Known Allergies Allergy Verified 11/08/20 12:34 Home Medications ?Medication ?Instructions ?Recorded ?Confirmed ?Last Taken ?Type doxepin 10 mg capsule 10 mg PO BEDTIME 10/16/23 06/11/24 06/14/24 History fluoxetine 20 mg capsule 20 mg PO DAILY 10/16/23 06/11/24 06/14/24 History lisinopril 5 mg tablet 5 mg PO DAILY 10/16/23 06/11/24 06/14/24 History metformin 1,000 mg tablet 1,000 mg PO BID 10/16/23 06/11/24 06/14/24 History linagliptin 5 mg tablet (Tradjenta) 5 mg PO DAILY 03/02/24 06/11/24 06/12/24 History atorvastatin 20 mg tablet 20 mg PO DAILY 06/11/24 06/11/24 06/14/24 History Exam Height,Weight and Vital Signs: Height 5 ft 6 in Weight 77.564 kg Assessment and Plan Assessment Anesthesia Assessment: Chart Reviewed Documented by User: Nathalie Nugent MD 06/15/24 09:12 HPI - Anesthesia Eval Anesthesia Pre-Procedure Meds Is the patient on any of the following meds?: GLP1/DPP4 (Last dose of Tradjenta 06/12/24) [facility] Past Medical History Medical History Developmental delay, moderate DM II (diabetes mellitus, type II), controlled Depression Anxiety Umbilical hernia Colon cancer screening Family History Family history of problems with anesthesia: No Surgical History Surgical History Hx of colonoscopy History of surgery History of Problems with Anesthesia: No Social History Social History Household Members Other:: single- lives with a friend Alcohol intake: former Patient Tobacco Use Status: Former Tobacco user Current occupational status: disabled Meds Allergies Allergy/AdvReac Type Severity Reaction Status Date / Time No Known Allergies Allergy Verified 11/08/20 12:34 Home Medications ?Medication ?Instructions ?Recorded ?Confirmed ?Last Taken ?Type doxepin 10 mg capsule 10 mg PO BEDTIME 10/16/23 06/11/24 06/14/24 History fluoxetine 20 mg capsule 20 mg PO DAILY 10/16/23 06/11/24 06/14/24 History lisinopril 5 mg tablet 5 mg PO DAILY 10/16/23 06/11/24 06/14/24 History metformin 1,000 mg tablet 1,000 mg PO BID 10/16/23 06/11/24 06/14/24 History linagliptin 5 mg tablet (Tradjenta) 5 mg PO DAILY 03/02/24 06/11/24 06/12/24 History atorvastatin 20 mg tablet 20 mg PO DAILY 06/11/24 06/11/24 06/14/24 History Exam Height,Weight and Vital Signs: Height 5 ft 6 in Weight 77.564 kg Vital Signs Temp Pulse Resp BP Pulse Ox O2 Del Method 06/15/24 06:27 98.5 F 84 20 154/78 H 97 Room Air Pertinent Lab Results Pertinent Lab Results: Lab Results 06/15/24 Range/Units 06:31 POC Glucose 139 H (60-115) mg/dL Airway Mallampati Class: II TM Dist: >3cm Neck ROM: Full Loose/Missing/Broken Teeth: Yes (Several missing. Top front left and right broken. Denies loose) Heart: RRR Lungs: CTAB Assessment and Plan Final Anesthetic Review Family History of Problems with Anesthesia: No History of Problems with Anesthesia: No NPO: Yes ASA Class: II Final Preanesthetic Review: No Changes in Pt Med Stat, Meds/Allgs Chart Reviewed, Consent Obtained/Reviewed and Anes Risks/Benef Reviewed Patient Risk: Intermediate Procedure Risk: Low Assessment/Block/Sedation in SS: Assess/Block/Sedation-SS Anesthetic Plan Anesthetic Plan: TIVA Disposition: Standard PACU
[2024-06-15 06:27] VITALS: BP 154/78; PULSE 84; RESP 20; TEMP 36.9; O2SAT 97; BMI 27.8
[2024-06-15] MEDS: Lactated Ringers 1,000 ML 100 ML IVCONT (06:43)
[2024-06-15 07:22] LABS: Glucose, Whole Blood 139 mg/dL (60-115)
--- NOTE | 2024-06-15 08:46 | P.HPSUR_ITS ---
Pre-Procedural Eval Section A - 24 Hr Update-Section A only Date of Service: 06/15/24 Section B - Complete if H&P > 30 days Chief Complaint: Gastro-esophageal reflux disease without esophagit Relevant Family History (Specify if Yes): No Relevant Social History: None Present Medications: see Short Stay Collaborative assessment Medical History: Significant History (Developmental delay, moderate DM II (di abetes mellitus, type II), controlled Depression Anxiety Umbilical hernia Colon cancer screening) History of Previous Operations: Relevant previous surgery/procedure and date(s) (Hx of colonoscopy History of surgery) Allergies: Allergies Allergy/AdvReac Type Severity Reaction Status Date / Time No Known Allergies Allergy Verified 11/08/20 12:34 Review of Systems Sugical H&P ROS: Negative: Constitution, Cardiovascular, Respiratory, Neurological, Psychiatric, Hem-Onc, Allergic/Immunologic, Gastrointestinal, Genitourinary, Musculoskeletal, Integumentary, Endocrine and Eyes/Ears/Nose/Throat Exam Surgical H&P Exam: Normal: HEENT, Normal: Heart, Normal: Lungs, Normal: Extremities, Normal: Abdomen, Normal: Skin and Normal: Neurological Plan Diagnosis/Plan: Unchanged I have reviewed the history and physical and performed a pertinent physical examination on my patient. No changes have occurred unless specified. Time Spent With Patient Time: Total time managing care of this patient today ____ minutes.
--- NOTE | 2024-06-15 09:05 | W.PM.OPN ---
Operative Note Operative Note Date of Service: 06/15/24 Narrative: Procedure Description: EGD Indication: dysphagia Anesthesia: MAC FLEXIBLE TRANSORAL UPPER GASTROINTESTINAL ENDOSCOPY UPPER ENDOSCOPY Consent: Indications for the procedure and potential complications of bleeding, perforation, reaction to medications and missed diagnosis were discussed with the patient and informed consent was obtained. Instrument: Olympus GIF H 190 J mid size upper endoscope Monitoring: Vital signs and clinical assessment, continuous EKG monitoring, Pulse oximetry, Carbon Dioxide monitoring and blood pressure monitoring were done throughout the procedure. Procedure: The patient was placed in the left lateral decubitis position and pre-procedure medications were administered and a bite block was placed. The endoscope was inserted into the mouth and advanced under direct vision to the third part of duodenum. A careful inspection was made as the upper endoscope was withdrawn including a retroflexed examination of the proximal stomach; Findings and interventions are described below. Findings: Larynx:normal Esophagus: GE junction at 38 cm, diaphragm hiatus at 38 cm, slightly irregular GEJ, bx taken as well as from distal and proximal esophagus, balloon dilation done to 20 mm at LES and UES< no tears seen Stomach: mild patchy erythema . Biopsies were obtained. Grade 2 flap valve on retroflexed examination of the cardia. Duodenum: Normal bulb and descending duodenum, Intervention: Biopsies as noted above, balloon dilation Impression/Findings: gastritis irregular Z line PLAN: ensure compliance with PPI GERD precautions
[2024-06-15 09:10] VITALS: BP 106/67; PULSE 78; RESP 15; TEMP 36.1; O2SAT 98
[2024-06-15 09:25] VITALS: BP 132/86; PULSE 78; RESP 18; TEMP 36.6; O2SAT 96
== END 2024-06-15 09:49 | disposition home or self-care (01) ==
PROVIDERS: PCP Internal Medicine; Visit Provider Internal Medicine Gastroenterology
PROC: (CPT 43249; principal; 2024-06-15 11:10)
DX: K29.60 Other gastritis without bleeding (principal); K22.9 Disease of esophagus, unspecified; R13.10 Dysphagia, unspecified; K21.9 Gastro-esophageal reflux disease without esophagitis; E11.9 Type 2 diabetes mellitus without complications; Z79.84 Long term (current) use of oral hypoglycemic drugs; Z79.02 Long term (current) use of antithrombotics/antiplatelets; Z79.899 Other long term (current) drug therapy; Z87.891 Personal history of nicotine dependence
CPT/HCPCS: 43249; 43239; 82947; 88305; 88313; 88342; J2003; J2704

== ENCOUNTER → 2024-06-15 06:11 | Outpatient (BNV) | payer MEDICARE, MEDICAID, SELFPAY | PROVIDERS: PCP Internal Medicine; Visit Provider Internal Medicine Gastroenterology | DX: R13.10 Dysphagia, unspecified (principal); K29.70 Gastritis, unspecified, without bleeding; K20.90 Esophagitis, unspecified without bleeding; K22.89 Other specified disease of esophagus | CPT/HCPCS: 43239; 43249 ==

== ENCOUNTER 2024-09-23 11:04 | Outpatient (REF) | payer MEDICARE, MEDICAID, SELFPAY ==
[2024-09-23 11:57] LABS: Estimated Average Glucose 146 mg/dL; Hemoglobin A1C 178.8182 umol/L; Hemoglobin A1c % 6.7 % (<6.0)
[2024-09-23 12:31] LABS: Alanine Aminotransferase 24 U/L (0-40); Alkaline Phosphatase 100 U/L (39-117); Anion Gap 13 (12-20); Aspartate Amino Transferase 19 U/L (5-37); Bilirubin Total 0.4 mg/dL (0.0-1.0); Blood Urea Nitrogen 11 mg/dL (9-16); Calcium 9.1 mg/dL (8.4-10.2); Carbon Dioxide 28 mmol/L (22-29); Chloride 98 mmol/L (96-108); Estimated Glomerular Filt Rate > 60; Glucose Random 143 mg/dL (60-115); Potassium 4.5 mmol/L (3.3-5.1); Sodium 134 mmol/L (135-145); Total Protein 6.6 g/dL (6.5-8.0)
== END 2024-09-23 11:05 | disposition home or self-care (01) ==
LOC: HO.LAB 11:04
PROVIDERS: PCP Internal Medicine; Visit Provider Internal Medicine
DX: E11.9 Type 2 diabetes mellitus without complications (principal); E78.00 Pure hypercholesterolemia, unspecified; F33.42 Major depressive disorder, recurrent, in full remission; R13.14 Dysphagia, pharyngoesophageal phase
CPT/HCPCS: 36415; 80053; 83036

== ENCOUNTER 2024-12-27 14:44 | Outpatient (REF) | payer MEDICARE, MEDICAID, SELFPAY ==
[2024-12-27 15:35] LABS: Hemoglobin A1C 197.1886 umol/L; Total Hemoglobin (HGBA1C) 3646.9036 umol/L
[2024-12-27 16:08] LABS: Alanine Aminotransferase 17 U/L (0-40); Albumin Level 4.4 g/dL (3.5-5.0); Alkaline Phosphatase 120 U/L (39-117); Anion Gap 13 (12-20); Aspartate Amino Transferase 16 U/L (5-37); Blood Urea Nitrogen 14 mg/dL (9-16); Calcium 9.2 mg/dL (8.4-10.2); Carbon Dioxide 29 mmol/L (22-29); Chloride 97 mmol/L (96-108); Estimated Glomerular Filt Rate > 60; Potassium 4.6 mmol/L (3.3-5.1); Sodium 134 mmol/L (135-145); Total Protein 7.1 g/dL (6.5-8.0)
== END 2024-12-27 14:45 | disposition home or self-care (01) ==
LOC: HO.LAB 14:44
PROVIDERS: PCP Internal Medicine; Visit Provider Internal Medicine
DX: E11.9 Type 2 diabetes mellitus without complications (principal); E78.00 Pure hypercholesterolemia, unspecified; I10 Essential (primary) hypertension; F33.42 Major depressive disorder, recurrent, in full remission
CPT/HCPCS: 36415; 80053; 83036